=== PATIENT | female | born 1995 | race Hispanic/Latino ===

== ENCOUNTER 2017-07-14 19:54 | Emergency (ER) | payer OTHER ==
[2017-07-14] MEDS ORDERED: ACETAMINOPHEN EXTRA STRENGTH 500 MG TABLET ONE (20:25)
[2017-07-14] MEDS ORDERED: ONDANSETRON ODT 4 MG TAB ONE (20:25)
[2017-07-14] MEDS ORDERED: ACETAMINOPHEN ELIXIR 325 MG/10.15ML UDCUP ONE (20:38)
[2017-07-14 21:19] LABS: RAPID GROUP A STREP NEGATIVE (NEGATIVE)
== END 2017-07-14 21:35 | disposition home or self-care (01) ==
LOC: EDH 19:54
DX: J09.X2 Influenza due to identified novel influenza A virus with other respiratory manifestations (principal)
CPT/HCPCS: 87804; 87880

== ENCOUNTER 2018-08-20 12:29 | Emergency (ER) | payer OTHER ==
[2018-08-20] MEDS ORDERED: ACETAMINOPHEN 325 MG TAB ONE ×2 (13:44→13:47)
[2018-08-20 14:21] LABS: APPEARANCE,URINE Cloudy (CLEAR); BILIRUBIN,URINE Negative (NEGATIVE); COLOR,URINE Yellow (YELLOW); GLUCOSE, URINE (UA) Negative (NEGATIVE); KETONES,URINE 15 mg/dL (NEGATIVE); LEUKOCYTE ESTERASE ,URINE Trace (NEGATIVE); NITRATE,URINE Negative (NEGATIVE); OCCULT BLOOD,URINE Negative (NEGATIVE); PH,URINE 5.5 (5.0-8.0); PROTEIN,URINE Negative (NEGATIVE)
[2018-08-20 14:22] LABS: HCG,QUAL RESULT NEGATIVE (NEGATIVE)
[2018-08-20 14:33] LABS: RAPID GROUP A STREP NEGATIVE (NEGATIVE)
[2018-08-20 14:46] LABS: BACTERIA,URINE Moderate /HPF (None Seen); RBC,URINE 0-1 /HPF (0-1)
[2018-08-20 14:47] LABS: SQUAMOUS EPITHELIAL CELL,UR Rare /HPF (0-2)
== END 2018-08-20 15:00 | disposition home or self-care (01) ==
LOC: EDH 12:29
DX: J11.1 Influenza due to unidentified influenza virus with other respiratory manifestations (principal)
CPT/HCPCS: 81001; 81025; 87804; 87880

== ENCOUNTER → 2020-03-30 | Outpatient (CLI) | payer OTHER | END | disposition home or self-care (01) | LOC: RAH 13:00 | PROVIDERS: ATTEND Family Medicine | DX: M79.674 Pain in right toe(s) (principal) | CPT/HCPCS: 73630 ==